=== PATIENT | female | born 1930 | race Caucasian/White ===

== ENCOUNTER → 2016-09-09 | Outpatient (CLI) | payer OTHER ==
[~2016-09-09] MED LIST: ACET-1138 PO; ARTHRITIS OTC PO; ASPEC81 PO; ASPI81TA28 PO; CARV6.25 PO; CHOL1000 PO; CYAN100T6 PO; DRGTP12 TOP; ERGO500037 PO; HYDR-5688 PO; ISOS30TA3 PO; LACT10SO17 PO; LISI-461 PO; NTRGSL/4 UT; ONDA4TAB46 PO; RXC5 PO; VITAMIN B12 PO
[2016-09-09 18:00] LABS: ALT/SGPT 12 U/L (12-78); BLOOD UREA NITROGEN 23 mg/dl (7-18); CALCIUM 8.7 mg/dl (8.5-10.1); CARBON DIOXIDE 25 mmol/L (21-32); CHLORIDE 104 mmol/L (98-107); CREATININE 0.75 mg/dl (0.60-1.20); GLUCOSE 114 mg/dl (70-99); POTASSIUM 4.2 mmol/L (3.5-5.1); SODIUM 138 mmol/L (136-145)
[2016-09-10 07:14] LABS: ESTIMATED AVERAGE GLUCOSE 137 mg/dl; HA1C FLAG Normal (Normal)
== END | disposition home or self-care (01) ==
LOC: C.LABMFLN 08:06
PROVIDERS: ATTEND Family Medicine
DX: I25.10 Atherosclerotic heart disease of native coronary artery without angina pectoris (principal); E53.8 Deficiency of other specified B group vitamins; E55.9 Vitamin D deficiency, unspecified; R73.01 Impaired fasting glucose

== ENCOUNTER 2016-11-26 08:34 | Inpatient (IN) | payer OTHER ==
[2016-11-11 13:34] VITALS: BMI 22.0
--- NOTE | 2016-11-11 14:11 | PAT Medication Instructions ---
Service Date Nov 11, 2016. Current Home Medication List Aspirin (Aspirin Ec), 81 MG PO QPM Carvedilol (Coreg), 6.25 MG PO BID Cholecalciferol (Vitamin D3), 1 TAB PO QAM Cyanocobalamin (Vitamin B12 100 Mcg), 250 MCG PO QAM Ergocalciferol (Vitamin D 64342 Unit), 50,000 UNIT PO [id number] Fentanyl (Fentanyl), 1 DOSE TOP Q3DAYS Isosorbide Mononitrate Ext Rel (Imdur Ext Rel), 30 MG PO QAM Lactulose (Chronulac), 1 DOSE PO BID Lisinopril (Zestril), 10 MG PO QAM Nitroglycerin (Nitrostat), 0.4 MG UT PRN Ondansetron Hcl (Zofran), 4 MG PO PRN PRN for Nausea [Arthritis Otc], 2 TAB PO BID Medication Instructions For Your Scheduled Surgery Ergocalciferol (Vitamin D 92685 Unit), 50,000 UNIT PO [id number] (okay to continue as directed) [Arthritis Otc], 2 TAB PO BID (check with surgeon for instructions) - Hold the following medications 24 hours prior to surgery: Fentanyl (Fentanyl), 1 DOSE TOP Q3DAYS ( avoid placing on surgical site) - Hold the following medications the morning of surgery: Lisinopril (Zestril), 10 MG PO QAM Lactulose (Chronulac), 1 DOSE PO BID Cholecalciferol (Vitamin D3), 1 TAB PO QAM Cyanocobalamin (Vitamin B12 100 Mcg), 250 MCG PO QAM - Take the following medications the morning of surgery with a sip of water: Ondansetron Hcl (Zofran), 4 MG PO PRN PRN for Nausea Nitroglycerin (Nitrostat), 0.4 MG UT PRN Isosorbide Mononitrate Ext Rel (Imdur Ext Rel), 30 MG PO QAM Carvedilol (Coreg), 6.25 MG PO BID - Take the following medications as scheduled the night before surgery: Ondansetron Hcl (Zofran), 4 MG PO PRN PRN for Nausea Nitroglycerin (Nitrostat), 0.4 MG UT PRN Lactulose (Chronulac), 1 DOSE PO BID Carvedilol (Coreg), 6.25 MG PO BID Aspirin (Aspirin Ec), 81 MG PO QPM (okay to continue per surgeon) If you have any questions please call us at [phone] (Charlene Vásquez PA-C) or [phone] or [phone]
[2016-11-11 15:06] LABS: INR 1.1 (0.9-1.1); PARTIAL THROMBOPLASTIN RATIO 1.1; PROTHROMBIN TIME (PATIENT) 11.4 SECONDS (9.0-12.0)
[2016-11-11 15:24] LABS: URINE APPEARANCE CLOUDY (CLEAR); URINE BILIRUBIN NEG (NEG); URINE COLOR YELLOW; URINE EPITHELIAL CELL AUTO >30 /lpf (0-5); URINE NITRITE NEG (NEG); URINE SPECIFIC GRAVITY 1.017 (1.000-1.030); UROBILINOGEN NEG (NEG)
[2016-11-11 15:27] LABS: MANUAL MICROSCOPIC REQUIRED? NO; REVIEW REQ? NO
[2016-11-12 07:04] LABS: ESTIMATED AVERAGE GLUCOSE 137 mg/dl; HA1C FLAG Normal (Normal)
--- NOTE | 2016-11-18 12:17 | HISTORY & PHYSICAL EXAMINATION ---
DATE OF ADMISSION: 11/19/2016 CHIEF COMPLAINT: Left hip pain. 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 X-rays and CT scan reveal severe osteoarthritis with complete loss of joint space. The entire hip joint is surrounded by large amounts of osteophytes and heterotopic bone. Due to her ongoing pain and severe disability, she is now scheduled for left total hip arthroplasty. PAST MEDICAL HISTORY: Coronary artery disease, moderate ischemic cardiomyopathy, hypertension. PAST SURGICAL HISTORY: Unknown. MEDICATIONS: Include fentanyl patch 25 mcg q. 72 hours, mirtazapine 15 mg at bedtime, carvedilol 6.25 mg 1 tablet twice daily, isosorbide mononitrate ER 30 mg daily, lisinopril 5 mg daily, lactulose solution 2 tablespoons p.o. b.i.d., vitamin B12 500 mcg daily, Ecotrin 81 mg daily, Nitrostat 0.4 mg sublingual p.r.n. chest pain, tramadol 50 mg q. 6 hours p.r.n. pain, vitamin B12 250 mcg daily, vitamin D 50,000 units every 5 weeks. ALLERGIES: No known drug allergies. SOCIAL HISTORY AND REVIEW OF SYSTEMS: Noncontributory. PHYSICAL EXAMINATION: GENERAL: Well-nourished, well-developed elderly female who is restricted to her wheelchair due to pain in her left hip. HEENT: Normocephalic, atraumatic, extraocular movements intact, oropharynx pink and moist. NECK: Supple without adenopathy. LUNGS: Clear to auscultation bilaterally. HEART: Regular rate and rhythm. ABDOMEN: Soft, nontender, nondistended. EXTREMITIES: The upper extremities are within normal limits. The left hip demonstrates virtually no range of motion. It is painful with any attempted motion. X-rays and CT scan were reviewed. She has severe osteoarthritis with complete loss of the joint space. There is large amount of accessory bone and osteophytes about the hip joint. ASSESSMENT: Left hip degenerative joint disease. PLAN: Risks versus benefits were discussed. Consent was obtained. The patient's primary care physician is Dr. Clifford Brock from [facility]. Her cardiology is [facility] cardiology in [place]. We will proceed with left total hip arthroplasty upon preoperative workup and medical clearance.
[2016-11-18 14:57] VITALS: BMI 22.0
--- NOTE | 2016-11-25 11:58 | HISTORY & PHYSICAL EXAMINATION ---
DATE OF ADMISSION: 11/26/2016 CHIEF COMPLAINT: Left hip pain. HISTORY OF PRESENT ILLNESS: The patient is an 86-year-old female with known severe osteoarthritis about her left hip. Her pain and disability is to the point that she really has limited ambulatory ability and spends a lot of time in a wheelchair. X-rays demonstrate severe left hip DJD with significant osteophyte formation about the joint. She is now scheduled for a left total hip arthroplasty. PAST MEDICAL HISTORY: Coronary artery disease, ischemic cardiomyopathy, hypertension, hyperglycemia. PAST SURGICAL HISTORY: Cardiac catheterization, not a candidate for revascularization procedure. MEDICATIONS: Fentanyl transdermal patch 25 mcg every 72 hours, mirtazapine 15 mg at bedtime, carvedilol 6.25 mg twice daily, isosorbide mononitrate ER 30 mg daily, lisinopril 5 mg daily, lactulose solution 2 tablespoons p.o. b.i.d., vitamin B12 500 mcg daily, Ecotrin 81 mg daily, Nitrostat 0.4 mg sublingual p.r.n. chest pain, tramadol 50 mg q. 6 hours p.r.n. pain, vitamin B12 250 mcg daily, vitamin D 50,000 units every 5 weeks. ALLERGIES: No known drug allergies. SOCIAL HISTORY AND REVIEW OF SYSTEMS: Noncontributory. PHYSICAL EXAMINATION: GENERAL: Well-nourished, well-developed elderly female who is essentially restricted to a wheelchair. HEAD, EYES, EARS, NOSE, AND THROAT: Normocephalic, atraumatic, extraocular movements intact, oropharynx pink and moist. NECK: Supple without adenopathy. LUNGS: Clear to auscultation bilaterally. HEART: Regular rate and rhythm. ABDOMEN: Soft, nontender, nondistended. EXTREMITIES: The upper extremities are within normal limits. The left hip demonstrates significantly limited active or passive range of motion. She has significant pain with any attempted motion. X-RAYS: X-rays were reviewed. She has severe osteoarthritis about the left hip with significant osteophyte and/or heterotopic bone ossification about the entire acetabulum and femoral head. ASSESSMENT: Left hip degenerative joint disease. PLAN: Risks versus benefits were discussed. Consent was obtained. The patient's primary care physician is Dr. Clifford Brock from [facility]. Her batch maker is Dr. Dennis Solis from [facility]. Will proceed with left total hip arthroplasty upon preoperative workup and medical clearance.
[~2016-11-26] VITALS: Ht 167.6 cm; Wt 62.1 kg
[2016-11-26] VITALS (8 sets, daily range): BP systolic 94–154; BP diastolic 51–65; PULSE 60–72; TEMP 36.3–36.5; O2SAT 97–100; Ht 167.6 cm; Wt 62.1 kg
--- NOTE | 2016-11-26 07:32 | History & Physical Bridge Note ---
H&P Re-Evaluation Bridge Note: I have examined the patient, reviewed the History & Physical and in the interval since the performance of the History & Physical I have noted the following changes of clinical significance: No changes noted
[~2016-11-26 08:34] MED LIST changes: -ACET-1138 PO; +ACETAMINOPHEN 500 MG TAB PO SCH; -ASPEC81 PO; +BUPIVACAINE 0.5 % 5 MG/1 ML PF 10ML VIAL ONE; +CEFAZOLIN 1000MG/55 ML D5W 55 ML IV SCH; +CeleBREX 200 MG CAP PO SCH; +DEXAMETHASONE 4 MG TAB PO SCH; +FAMOTIDINE 20 MG TAB PO SCH; +GABAPENTIN 300 MG CAP PO SCH; -HYDR-5688 PO; +LACTATED RINGER'S 1000ML 1,000 ML IV SCH; +LACTATED RINGER'S 1000ML 500 ML IV ONE; +LACTATED RINGER'S 1000ML IV SCH; +METOCLOPRAMIDE HCL 10 MG TAB PO SCH; +ROPIVACAINE 5MG/ML 30 ML 150 MG, BUPIVACAINE/EPINEPHR 0.5% MPF 30 ML, KETOROLAC TROMETH... INFIL SCH; -RXC5 PO; -VITAMIN B12 PO
[2016-11-26] MEDS ORDERED: FENTANYL CITRATE INJ 50 MCG/1 ML 2 ML VIAL ONE (08:41)
[2016-11-26] MEDS ORDERED: PROPOFOL IV EMULSION 10 MG/ML 20 ML VIAL IV ONE (08:41)
[2016-11-26] MEDS ORDERED: LIDOCAINE HCL 2% 2 ML VIAL (20MG/ML) ONE (08:41)
[2016-11-26] MEDS ORDERED: MIDAZOLAM HCL 1 MG/ML 2ML VIAL ONE (08:42)
[2016-11-26] MEDS ORDERED: ORTHO JOINT ANESTHETIC ONE (09:33)
[2016-11-26] MEDS ORDERED: POVIDONE-IODINE OP SOLN 30 ML BTL ONE (09:34)
[2016-11-26] MEDS ORDERED: BACITRACIN 50000 UNIT VIAL ONE (09:34)
[2016-11-26] MEDS: TRANEXAMIC ACID INJ 1,000 MG in SODIUM CHLORIDE 0.9% 100ML 100 ML IV SCH ×2 (09:40→13:44)
[2016-11-26] MEDS ORDERED: ATROPINE SULFATE 0.1 MG/ML 5ML SYR IV PRN (10:15)
[2016-11-26] MEDS ORDERED: MoRPHine SULFATE 10 MG/ML CARP/VIAL IV PRN (10:15)
[2016-11-26] MEDS ORDERED: ONDANSETRON INJ 2 MG/ML 2 ML VIAL IV PRN ×2 (10:15→12:00)
[2016-11-26] MEDS ORDERED: EpHEDrine SULFATE INJ 50 MG/ML AMP IV PRN (10:15)
[2016-11-26] MEDS ORDERED: MEPERIDINE HCL 25 MG/ML CARP IV PRN (10:15)
[2016-11-26] MEDS ORDERED: FENTANYL CITRATE INJ 50 MCG/1 ML 2 ML VIAL IV PRN (10:15)
[2016-11-26] MEDS ORDERED: PHENYLEPHRINE 100MCG/ML 5ML SYR ONE (10:33)
[2016-11-26] MEDS ORDERED: GLYCOPYRROLATE INJ 0.2 MG/ML VIAL ONE (10:46)
[2016-11-26] MEDS ORDERED: EpHEDrine SULFATE INJ 50 MG/ML AMP ONE (11:02)
--- NOTE | 2016-11-26 11:23 | [facility] Post Operative Brief Note ---
Immediate Operative Summary Operative Date Nov 26, 2016. Pre-Operative Diagnosis Left Hip Degenerative Joint Disease Post-Operative Diagnosis Left Hip Degenerative Joint Disease Procedure(s) Performed Left Total Hip Arthroplasty Surgeon Dr. Ranjeet Liriano Molding Technician Surgeon(s) Sukumar Negro PA-C Estimated Blood Loss 50ML Findings severe oa Specimens A. Left Femoral Head Disposition Recovery Room / PACU
--- NOTE | 2016-11-26 11:36 | OPERATIVE REPORT ---
DATE OF OPERATION: 11/26/2016 PREOPERATIVE DIAGNOSIS: Osteoarthritis left hip. POSTOPERATIVE DIAGNOSIS: Osteoarthritis left hip. PROCEDURE: Left connective total hip arthroplasty. SURGEON: Dr. Liriano. MECHANICAL ESTIMATOR: Sukumar Negro PA-C. ANESTHESIA: General. COMPLICATIONS: None. OPERATION AND FINDINGS: PROCEDURE: Following induction of adequate general anesthesia, the patient was placed in right lateral decubitus position and left Francesca-Langenbeck incision was made. Subcutaneous tissue was sharply dissected. Electrocautery used for hemostasis. The fascia was incised throughout the length of the wound and a arteaga scissor placed beneath the short external rotators. The pyriformis was tagged with #1 Vicryl. The short external rotators were divided from the posterior aspect of the femur using electrocautery. These were swept posteriorly. A T-capsulotomy incision was made and the hip was dislocated using a combination of flexion, adduction, and internal rotation. Exposure of the femoral neck with old-style Hohmann and a blunt Hohmann was carried out and a femoral rasp was utilized as a guide for making the appropriate level femoral neck cut. This bone fragment was removed and reserved on the back table. Next, attention was turned to the acetabulum where bone hook was used to retract the femur while the offset retractors were placed anterior and posteriorly. A double-angled Hohmann was placed in superior and anterior position exposing the acetabulum nicely. Acetabular labrum as well as posterior capsule elements were removed using a long knife and a long pickup. Fovea centralis was cleared of all soft tissue. Sequential reamings were carried up to a size 56 and decision was made to proceed with impaction of a size 56 trabecular metal cup. This was impacted and held using a single 35 mm bone screw. The acetabular liner was placed with 15 of elevated posterior wall in the superior and posterior position. Next, attention was turned to the femoral portion of the case where a Bovie and pickup was used to further clear short external rotators from their insertion on the femur. Box osteotome was used to gain access to the femoral canal and the T-handled rasp and a rattail rasp were used to further open and lateral the canal. Sequentially raspings were carried up to a size 5 which gave good fit and fill of the proximal femur. A trial reduction was carried out and dual mobility femoral head 28 mm +0 ceramic offset femoral neck component was chosen as the size to be used. A dual mobility femoral head was impacted into position, +0 head was utilized. The trial reduction was stable in all degrees of rotation with no [id number] impingement. The hip was dislocated. The trial components were removed and the final femoral stem, neck, and femoral head combination were assembled on the back table and impacted into position. Hip was relocated. Range of motion checked once again successful and the wound was irrigated. The pyriformis repaired to the greater trochanter using #1 Vicryl [id number] suture. A Hemovac drain was placed and the fascia was closed using #1 Vicryl, subcutaneous tissue was closed using 0 Dexon, and skin was closed with phong. Sterile dressing of Adaptic, 4 x 4's, ABDs, and foam tape was applied. The patient tolerated the procedure well. Recovery room stable. Due to the complex nature of the procedure, the entire surgery was performed with the operational assistance of Sukumar Negro PA-C. The assistant purchasing manager, under direct supervision, was involved in the actual performance of all aspects of the surgical procedure including hemostasis, tissue retraction and incision, instrument management, patient positioning, and wound closure. I attest to the content of the Intraoperative Record and any orders documented therein. Any exceptio ns are noted below.
[2016-11-26] MEDS ORDERED: ALUMINUM/MAGNESIUM/SIMETH (MAALOX MAX) 30 ML UDC PO PRN (12:00)
[2016-11-26] MEDS ORDERED: MAGNESIUM HYDROXIDE SUSP 30 ML UDC PO PRN (12:00)
[2016-11-26] MEDS ORDERED: METOCLOPRAMIDE HCL INJ 5 MG/ML 2 ML VIAL IV PRN (12:00)
[2016-11-26] MEDS ORDERED: NITROGLYCERIN 0.4 MG SL PER TAB CHARGE UT PRN (12:00)
[2016-11-26] MEDS ORDERED: ZOLPIDEM TARTRATE 5 MG TAB PO PRN (12:00)
[2016-11-26] MEDS ORDERED: MoRPHine SULFATE 2 MG/ML CARP IV PRN (12:00)
--- NOTE | 2016-11-26 12:53 | DIAGNOSTIC IMAGING REPORT ---
AP PELVIS, CROSSTABLE LATERAL LEFT HIP History: Left total hip arthroplasty. Degenerative arthritis. Postop. FINDINGS: The patient is status post a left total hip arthroplasty. The hardware is intact. No fracture or dislocation. Skin phong and surgical drains are in place. IMPRESSION: Left total hip arthroplasty. No evidence for hardware complication. Electronically signed by: Manjit Adamson M.D. 11/26/2016 12:51 PM Dictated Date/Time: 11/26/2016 12:46 PM
--- NOTE | 2016-11-26 13:46 | Medical Consult ---
History General Date of Service: Nov 26, 2016. Stated Complaint: Left Hip Osteoarthritis HPI The patient is a 86 year old female who presents to [facility] with complaints of Left Hip Osteoarthritis. The patient's primary care provider is Clifford Brock M.D.. This pt with non operative CAD and ischemic cardiomyopahty underwent left FELICIANO, reportedly was not having any chest pain or shortness of breath pre procedure, currently is resting well Historian: patient, other (chart) Review of Systems Constitutional: reports: malaise, weakness Cardiovascular: denies: chest pain, chest pressure Respiratory: denies: cough, shortness of breath Gastrointestinal: denies: abdominal pain, constipation, diarrhea Genitourinary - Female: denies: hematuria, hesitancy Musculoskeletal: reports: arthralgias, joint pain Integumentary: denies: rash, redness Psychiatric: denies: anxiety, depression Past Medical History Past Medical History: coronary artery disease (ischemic cardiomyopathy), hypertension, other (glucose intolerance) Family History Other: Diabetes, Heart Disease, Hypertension Social History Hx Tobacco Use In Past Year?: No Smoking Status: Never Smoker Allergies Coded Allergies: Propranolol (Verified Allergy, Unknown, LISTED ON PCP RECORD-UNKNOWN, ) Tramadol (Verified Adverse Reaction, Unknown, CONSTIPATION, 11/26/16) Current Medications Reported Home Medications Medications Dose Route/Sig Max Daily Dose Days Date Category Vitamin B12 100 Mcg (Cyanocobalamin) 100 Mcg Tab 250 Mcg PO QAM 11/11/16 Reported Vitamin D 74034 Unit (Ergocalciferol) 50,000 Unit Cap 50,000 Unit PO [id number] 11/11/16 Reported Nitrostat (Nitroglycerin) 0.4 Mg Tab 0.4 Mg UT PRN 11/11/16 Reported Zofran (Ondansetron HCl) 4 Mg Tab 4 Mg PO PRN PRN 11/11/16 Reported Imdur Ext Rel (Isosorbide Mononitrate) 30 Mg Ertab 30 Mg PO QAM 11/11/16 Reported Chronulac (Lactulose) 10 Gm/15 Ml Syrp 1 Dose PO BID 11/11/16 Reported Fentanyl 12 Mcg Tdsy 1 Dose TOP Q3DAYS 11/11/16 Reported [Arthritis Otc] 2 Tab PO BID 11/11/16 Reported Vitamin D3 (Cholecalciferol) 1,000 Unit Tab 1 Tab PO QAM 90 11/11/16 Reported Aspirin Ec (Aspirin) 81 Mg Tab 81 Mg PO QPM 11/11/16 Reported Coreg (Carvedilol) 6.25 Mg Tab 6.25 Mg PO BID 11/11/16 Reported Zestril (Lisinopril) 10 Mg Tab 10 Mg PO QAM 11/11/16 Reported Physical Physical Exam Vital Signs: Date Time Temp Pulse Resp B/P Pulse Ox O2 Delivery O2 Flow Rate FiO2 11/26/16 13:21 63 16 132/52 98 2.0 11/26/16 12:50 100 Nasal Cannula 2.0 11/26/16 12:50 36.4 72 16 94/57 100 Nasal Cannula 2.0 11/26/16 12:32 66 18 11/26/16 12:32 66 18 99 11/26/16 12:30 97/52 11/26/16 12:27 69 16 11/26/16 12:27 68 16 98 11/26/16 12:25 100/54 11/26/16 12:22 69 17 98 11/26/16 12:22 69 17 11/26/16 12:20 108/52 11/26/16 12:17 70 18 99 11/26/16 12:17 70 18 11/26/16 12:15 100/48 11/26/16 12:12 70 18 99 11/26/16 12:12 70 18 11/26/16 12:11 72 17 98 11/26/16 12:11 37 72 17 11/26/16 12:10 111/53 11/26/16 12:06 71 18 11/26/16 12:06 72 18 99 11/26/16 12:05 101/55 11/26/16 12:01 71 19 11/26/16 12:01 71 19 99 11/26/16 12:00 105/53 11/26/16 11:56 77 20 100 11/26/16 11:56 74 20 11/26/16 11:55 99/53 11/26/16 11:51 74 20 99 11/26/16 11:51 74 20 11/26/16 11:50 73 19 100/53 99 11/26/16 11:50 73 19 11/26/16 11:49 102/54 11/26/16 11:40 37 74 16 102/54 99 Nasal Cannula 3 11/26/16 08:54 36.5 62 20 127/63 100 Room Air General Appearance: NO APPARENT DISTRESS, thin Eyes: PERRLA, EOMI Neck: SUPPLE, NO THYROMEGALY Respiratory: BREATH SOUNDS NORMAL, CLEAR TO AUSCULTATION, CLEAR TO PERCUSSION Cardiovasular: REGULAR RATE/RHYTHM, NORMAL S1S2 Abdomen: NON TENDER, NORMAL BOWEL SOUNDS, NO REBOUND Upper Extremities: NO EDEMA, NO DEFORMITY Lower Extremities: NO EDEMA, NO DEFORMITY, other (good distal pulses) Psychiatric: NORMAL AFFECT Impression Assessment and Plan 86 F with ischemic cardiomyopathy s/p left total hip Unknown EF will recommend care with ivf, continue coreg and imdur, restarting lisinopril day 2 unless blood pressure requires for glucose intolerance will check bsg and if elevated use ssi continue fentanyl for pain lactulose for constipation orhto has chosen aspirin 81 bid for dvt prevention given her age will stop ambien and lyrica post op meds ordered by ortho
[2016-11-26] MEDS: D5W AND 1/2NSS + 20MEQ KCL 1,000 ML IV SCH ×2 (13:50→23:48)
[2016-11-26] MEDS ORDERED: MoRPHine SULFATE 4 MG/ML 1 ML CARP\\VIAL IV PRN (14:15)
[2016-11-26] MEDS ORDERED: GLUCOSE 10 TABS/TUBE PO PRN (14:30)
[2016-11-26] MEDS ORDERED: GLUCAGON FOR INJ 1 MG VIAL SQ PRN (14:30)
[2016-11-26] MEDS ORDERED: DEXTROSE 50% 50 ML SYR IV PRN (14:30)
[2016-11-26] MEDS ORDERED: GLUCOSE 40% GEL 15 GM TUBE PO PRN (14:30)
--- NOTE | 2016-11-26 14:43 | Anesthesiology Progress Note ---
Anesthesia Post Op Note Date & Time Nov 26, 2016 at 14:42 Vital Signs Pain Intensity: 0.0 Vital Signs Past 12 Hours Date Time Temp Pulse Resp B/P Pulse Ox O2 Delivery O2 Flow Rate FiO2 11/26/16 13:51 68 16 154/57 100 Nasal Cannula 2.0 11/26/16 13:21 63 16 132/52 98 2.0 11/26/16 12:50 100 Nasal Cannula 2.0 11/26/16 12:50 36.4 72 16 94/57 100 Nasal Cannula 2.0 11/26/16 12:32 66 18 11/26/16 12:32 66 18 99 11/26/16 12:30 97/52 11/26/16 12:27 69 16 11/26/16 12:27 68 16 98 11/26/16 12:25 100/54 11/26/16 12:22 69 17 98 11/26/16 12:22 69 17 11/26/16 12:20 108/52 11/26/16 12:17 70 18 99 11/26/16 12:17 70 18 11/26/16 12:15 100/48 11/26/16 12:12 70 18 99 11/26/16 12:12 70 18 11/26/16 12:11 72 17 98 11/26/16 12:11 37 72 17 11/26/16 12:10 111/53 11/26/16 12:06 71 18 11/26/16 12:06 72 18 99 11/26/16 12:05 101/55 11/26/16 12:01 71 19 11/26/16 12:01 71 19 99 11/26/16 12:00 105/53 11/26/16 11:56 77 20 100 11/26/16 11:56 74 20 11/26/16 11:55 99/53 11/26/16 11:51 74 20 99 11/26/16 11:51 74 20 11/26/16 11:50 73 19 100/53 99 11/26/16 11:50 73 19 11/26/16 11:49 102/54 11/26/16 11:40 37 74 16 102/54 99 Nasal Cannula 3 11/26/16 08:54 36.5 62 20 127/63 100 Room Air Notes Mental Status: alert / awake / arousable, participated in evaluation Pt Amnestic to Procedure: Yes Nausea / Vomiting: adequately controlled Pain: adequately controlled Airway Patency, RR, SpO2: stable & adequate BP & HR: stable & adequate Hydration State: stable & adequate Neuraxial Anesthesia: was administered, sensory block is resolving Anesthetic Complications: no major complications apparent
[2016-11-26] MEDS: KETOROLAC TROMETHAMINE 15 MG/ML VIAL IV. SCH ×2 (16:16→21:46)
[2016-11-26] MEDS: INSULIN ASPART 100 UNITS/ML 3 ML PEN SC SCH ×2 (17:50→20:23)
[2016-11-26] MEDS: FERROUS GLUCONATE 324 MG TAB PO SCH (17:51)
[2016-11-26] MEDS: ACETAMINOPHEN 500 MG TAB PO SCH (17:51)
[2016-11-26] MEDS: CEFAZOLIN IV 1,000 MG in DEXTROSE 5% 50ML 50 ML IV SCH (17:53)
[2016-11-26] MEDS: OXYCODONE HCL IR 5 MG TAB (IMMEDIATE RELEASE) PO PRN (20:17)
[2016-11-26] MEDS: DOCUSATE SODIUM 100 MG CAP PO SCH (20:18)
[2016-11-26] MEDS: ASPIRIN 81 MG ECTAB PO SCH (20:19)
[2016-11-26] MEDS: CARVEDILOL 6.25 MG TAB PO SCH (20:19)
[2016-11-26] MEDS ORDERED: PREGABALIN 75 MG CAP PO SCH (21:00)
[2016-11-27] VITALS (7 sets, daily range): BP systolic 107–149; BP diastolic 58–70; PULSE 53–92; TEMP 36.3–36.5; O2SAT 91–98
[2016-11-27] MEDS: CEFAZOLIN IV 1,000 MG in DEXTROSE 5% 50ML 50 ML IV SCH (02:30)
[2016-11-27] MEDS: ACETAMINOPHEN 500 MG TAB PO SCH ×3 (02:30→17:50)
[2016-11-27] MEDS: KETOROLAC TROMETHAMINE 15 MG/ML VIAL IV. SCH ×2 (04:27→09:52)
[2016-11-27 05:44] LABS: BASO % 0.1 %; BASO ABS # 0.01 K/uL (0-0.2); COMPLETE YES; HEMATOCRIT 32.3 % (37-47); IG% 0.3 %; LYMPH % 4.9 %; LYMPH ABS # 0.57 K/uL (1.2-3.4); MEAN CELL VOLUME 85.9 fL (80-100); MEAN CORPUSCULAR HEMOGLOBIN 29.8 pg (25-34); MEAN CORPUSCULAR HGB CONC 34.7 g/dl (32-36); MEAN PLATELET VOLUME 10.5 fL (7.4-10.4); MONO % 9.1 %; NEUT % 85.6 %; PLATELET COUNT 212 K/uL (130-400); RED BLOOD COUNT 3.76 M/uL (4.2-5.4); WHITE BLOOD COUNT 11.52 K/uL (4.8-10.8)
[2016-11-27 06:16] LABS: BUN/CREATININE RATIO 19.5 (10-20); CALCIUM 8.3 mg/dl (8.5-10.1); CREATININE 0.9 mg/dl (0.60-1.20); POTASSIUM 4.6 mmol/L (3.5-5.1)
[2016-11-27] MEDS: ISOSORBIDE MONONITRATE 30 MG TABCR PO SCH (07:24)
[2016-11-27] MEDS: FERROUS GLUCONATE 324 MG TAB PO SCH ×3 (07:24→17:50)
[2016-11-27] MEDS: PANTOprazole SOD 40 MG TAB PO SCH (07:24)
[2016-11-27] MEDS: DOCUSATE SODIUM 100 MG CAP PO SCH ×2 (07:24→20:16)
[2016-11-27] MEDS: ASPIRIN 81 MG ECTAB PO SCH ×2 (07:24→20:17)
[2016-11-27] MEDS: CYANOCOBALAMIN 500 MCG TAB (VIT B-12) PO SCH (07:25)
[2016-11-27] MEDS: MULTIVITAMIN TAB PO SCH (07:25)
[2016-11-27] MEDS: CARVEDILOL 6.25 MG TAB PO SCH ×2 (07:26→20:17)
[2016-11-27] MEDS ORDERED: DEXAMETHASONE INJ 10 MG in SYRINGE 0 ML IV SCH (07:30)
--- NOTE | 2016-11-27 07:51 | Orthopedic Progress Note ---
Orthopedic Progress Note Date of Service Nov 27, 2016. Subjective Post OP Day: 1 Reports: feeling well Objective N/V intact, dressing C/D/I (Hemovac d/c'd), toes mobile Date Time Temp Pulse Resp B/P Pulse Ox O2 Delivery O2 Flow Rate FiO2 11/27/16 07:36 94 Room Air 11/27/16 07:00 36.3 64 16 149/64 95 Room Air 11/27/16 05:18 96 Room Air 11/27/16 04:00 36.5 53 16 148/59 98 Nasal Cannula 2.0 11/26/16 23:45 Nasal Cannula 2.0 11/26/16 23:00 36.3 66 16 104/51 97 Nasal Cannula 2.0 11/26/16 20:25 36.5 60 14 120/65 97 Nasal Cannula 3.0 11/26/16 16:45 Nasal Cannula 2.0 11/26/16 15:50 36.5 67 14 109/57 99 Nasal Cannula 2.0 11/26/16 14:52 69 16 130/64 100 Nasal Cannula 2.0 11/26/16 13:51 68 16 154/57 100 Nasal Cannula 2.0 11/26/16 13:21 63 16 132/52 98 2.0 11/26/16 12:50 100 Nasal Cannula 2.0 11/26/16 12:50 36.4 72 16 94/57 100 Nasal Cannula 2.0 11/26/16 12:32 66 18 11/26/16 12:32 66 18 99 11/26/16 12:30 97/52 11/26/16 12:27 69 16 11/26/16 12:27 68 16 98 11/26/16 12:25 100/54 11/26/16 12:22 69 17 98 11/26/16 12:22 69 17 11/26/16 12:20 108/52 11/26/16 12:17 70 18 99 11/26/16 12:17 70 18 11/26/16 12:15 100/48 11/26/16 12:12 70 18 99 11/26/16 12:12 70 18 11/26/16 12:11 72 17 98 11/26/16 12:11 37 72 17 11/26/16 12:10 111/53 11/26/16 12:06 71 18 11/26/16 12:06 72 18 99 11/26/16 12:05 101/55 11/26/16 12:01 71 19 11/26/16 12:01 71 19 99 11/26/16 12:00 105/53 11/26/16 11:56 77 20 100 11/26/16 11:56 74 20 11/26/16 11:55 99/53 11/26/16 11:51 74 20 99 11/26/16 11:51 74 20 11/26/16 11:50 73 19 100/53 99 11/26/16 11:50 73 19 11/26/16 11:49 102/54 11/26/16 11:40 37 74 16 102/54 99 Nasal Cannula 3 11/26/16 08:54 36.5 62 20 127/63 100 Room Air Laboratory Results 24 Hours: Test 11/27/16 05:26 White Blood Count 11.52 K/uL Red Blood Count 3.76 M/uL Hemoglobin 11.2 g/dL Hematocrit 32.3 % Mean Corpuscular Volume 85.9 fL Mean Corpuscular Hemoglobin 29.8 pg Mean Corpuscular Hemoglobin Concent 34.7 g/dl Platelet Count 212 K/uL Mean Platelet Volume 10.5 fL Neutrophils (%) (Auto) 85.6 % Lymphocytes (%) (Auto) 4.9 % Monocytes (%) (Auto) 9.1 % Eosinophils (%) (Auto) 0.0 % Basophils (%) (Auto) 0.1 % Neutrophils # (Auto) 9.86 K/uL Lymphocytes # (Auto) 0.57 K/uL Monocytes # (Auto) 1.05 K/uL Eosinophils # (Auto) 0.00 K/uL Basophils # (Auto) 0.01 K/uL Assessment & Plan Assessment: 86 yo female stable POD #1 s/p left FELICIANO Plan: 1. Med management 2. DVT prophylaxis- ASA, TEDs, SCDs 3. PT/OT 4. D/C planning- pt interested in rehab/SNF
--- NOTE | 2016-11-27 08:24 | Anesthesiology Progress Note ---
Anesthesia Post Op Note Date & Time Nov 27, 2016 at 08:23 Vital Signs Pain Intensity: 2.0 Vital Signs Past 12 Hours Date Time Temp Pulse Resp B/P Pulse Ox O2 Delivery O2 Flow Rate FiO2 11/27/16 07:36 94 Room Air 11/27/16 07:00 36.3 64 16 149/64 95 Room Air 11/27/16 05:18 96 Room Air 11/27/16 04:00 36.5 53 16 148/59 98 Nasal Cannula 2.0 11/26/16 23:45 Nasal Cannula 2.0 11/26/16 23:00 36.3 66 16 104/51 97 Nasal Cannula 2.0 11/26/16 20:25 36.5 60 14 120/65 97 Nasal Cannula 3.0 Notes Mental Status: alert / awake / arousable, participated in evaluation Pt Amnestic to Procedure: Yes Nausea / Vomiting: adequately controlled Pain: adequately controlled Airway Patency, RR, SpO2: stable & adequate BP & HR: stable & adequate Hydration State: stable & adequate Neuraxial Anesthesia: sensory block resolved Anesthetic Complications: no major complications apparent
[2016-11-27] MEDS: INSULIN ASPART 100 UNITS/ML 3 ML PEN SC SCH ×4 (08:35→21:00)
[2016-11-27] MEDS ORDERED: LISINOPRIL 10 MG TAB PO SCH (09:00)
--- NOTE | 2016-11-27 12:09 | Progress Note ---
Subjective Date of Service: Nov 27, 2016. Subjective Pt evaluation today including: conversation w/ patient, physical exam, chart review Review of Systems Respiratory: No cough, No dyspnea at rest, No dyspnea on exertion, No hemoptysis, No problem reported, No see HPI, No shortness of breath, No sputum, No wheezing Cardiac: No PND, No chest pain, No claudication, No edema, No orthopnea, No palpitations, No problem reported, No see HPI Neurologic: No balance problems, No memory loss, No numbness/tingling, No paralysis, No problem reported, No see HPI, No vertigo, No weakness Medications Medications (Trade) Dose Ordered Sig/Rajinder Route Start Time Stop Time Status Last Admin Dose Admin Potassium Chloride/Dextrose/ Sod Cl (D5W And 1/2nss + 20meq KCl) 1,000 ml @ 100 mls/hr Q10H IV 11/26/16 13:30 11/27/16 07:52 DC 11/26/16 23:48 100 MLS/HR Ketorolac Tromethamine (Toradol Inj) 15 mg Q6H IV. 11/26/16 16:00 11/27/16 15:59 11/27/16 04:27 15 MG Acetaminophen (Tylenol Tab) 1,000 mg Q8H PO 11/26/16 18:00 12/26/16 17:59 11/27/16 02:30 1,000 MG Docusate Sodium (coLACE CAP) 100 mg BID PO 11/26/16 21:00 12/26/16 20:59 11/27/16 07:24 100 MG Multivitamins (Multivitamin Tab) 1 tab QAM PO 11/27/16 09:00 12/27/16 08:59 11/27/16 07:25 1 TAB Ferrous Gluconate (Ferrous Gluconate Tab) 324 mg TIDM PO 11/26/16 17:45 12/26/16 17:44 11/27/16 07:24 324 MG Pantoprazole Sodium 40 mg 40 mg QAM PO 11/27/16 09:00 12/27/16 08:59 11/27/16 07:24 40 MG Cefazolin Sodium 1000 mg/Dextrose 55 ml @ 100 mls/hr Q8H IV 11/26/16 18:00 11/27/16 02:32 DC 11/27/16 02:30 100 MLS/HR Dexamethasone Sodium Phosphate/ Syringe (Decadron Inj/ Syringe) 2.5 ml @ 1 mls/min TODAY@0730 IV 11/27/16 07:30 11/27/16 07:33 DC 11/27/16 07:23 1 MLS/MIN Aspirin (Ecotrin Tab) 81 mg BID PO 11/26/16 21:00 12/26/16 20:59 11/27/16 07:24 81 MG Carvedilol (Coreg Tab) 6.25 mg BID PO 11/26/16 21:00 12/26/16 20:59 11/27/16 07:26 6.25 MG Cyanocobalamin (Vitamin B-12 Tab) 250 mcg QAM PO 11/27/16 09:00 12/27/16 08:59 11/27/16 07:25 250 MCG Isosorbide Mononitrate (Imdur Ext Rel Tab) 30 mg QAM PO 11/27/16 09:00 12/27/16 08:59 11/27/16 07:24 30 MG Lisinopril (Zestril Tab) 10 mg QAM PO 11/27/16 09:00 11/28/16 08:59 11/27/16 07:25 10 MG Insulin Aspart (novoLOG ASPART) SLIDING SCALE PARAMETER ACHS SC 11/26/16 17:15 12/26/16 17:14 11/27/16 08:35 4 UNITS Objective Vital Signs Date Time Temp Pulse Resp B/P Pulse Ox O2 Delivery O2 Flow Rate FiO2 11/27/16 07:36 94 Room Air 11/27/16 07:00 36.3 64 16 149/64 95 Room Air 11/27/16 05:18 96 Room Air 11/27/16 04:00 36.5 53 16 148/59 98 Nasal Cannula 2.0 11/26/16 23:45 Nasal Cannula 2.0 11/26/16 23:00 36.3 66 16 104/51 97 Nasal Cannula 2.0 11/26/16 20:25 36.5 60 14 120/65 97 Nasal Cannula 3.0 11/26/16 16:45 Nasal Cannula 2.0 11/26/16 15:50 36.5 67 14 109/57 99 Nasal Cannula 2.0 11/26/16 14:52 69 16 130/64 100 Nasal Cannula 2.0 11/26/16 13:51 68 16 154/57 100 Nasal Cannula 2.0 11/26/16 13:21 63 16 132/52 98 2.0 11/26/16 12:50 100 Nasal Cannula 2.0 11/26/16 12:50 36.4 72 16 94/57 100 Nasal Cannula 2.0 11/26/16 12:32 66 18 11/26/16 12:32 66 18 99 11/26/16 12:30 97/52 11/26/16 12:27 69 16 11/26/16 12:27 68 16 98 11/26/16 12:25 100/54 11/26/16 12:22 69 17 98 11/26/16 12:22 69 17 11/26/16 12:20 108/52 11/26/16 12:17 70 18 99 11/26/16 12:17 70 18 11/26/16 12:15 100/48 11/26/16 12:12 70 18 99 11/26/16 12:12 70 18 11/26/16 12:11 72 17 98 11/26/16 12:11 37 72 17 11/26/16 12:10 111/53 Physical Exam General Appearance: WD/WN, no apparent distress Eyes: normal inspection, PERRL ENT: normal ENT inspection, hearing grossly normal Neck: supple, no adenopathy Respiratory/Chest: chest non-tender, lungs clear Cardiovascular: regular rate, rhythm, no gallop, no murmur Abdomen: normal bowel sounds, soft Extremities: normal range of motion Neurologic/Psychiatric: machine operator packaging II-XII nml as tested Laboratory Results Last 24 Hours Test 11/26/16 17:26 11/26/16 20:19 11/27/16 05:26 11/27/16 08:06 Bedside Glucose 229 mg/dl 277 mg/dl 246 mg/dl White Blood Count 11.52 K/uL Red Blood Count 3.76 M/uL Hemoglobin 11.2 g/dL Hematocrit 32.3 % Mean Corpuscular Volume 85.9 fL Mean Corpuscular Hemoglobin 29.8 pg Mean Corpuscular Hemoglobin Concent 34.7 g/dl Platelet Count 212 K/uL Mean Platelet Volume 10.5 fL Neutrophils (%) (Auto) 85.6 % Lymphocytes (%) (Auto) 4.9 % Monocytes (%) (Auto) 9.1 % Eosinophils (%) (Auto) 0.0 % Basophils (%) (Auto) 0.1 % Neutrophils # (Auto) 9.86 K/uL Lymphocytes # (Auto) 0.57 K/uL Monocytes # (Auto) 1.05 K/uL Eosinophils # (Auto) 0.00 K/uL Basophils # (Auto) 0.01 K/uL RDW Standard Deviation 43.4 fL RDW Coefficient of Variation 13.6 % Immature Granulocyte % (Auto) 0.3 % Immature Granulocyte # (Auto) 0.03 K/uL Sodium Level 138 mmol/L Potassium Level 4.6 mmol/L Chloride Level 106 mmol/L Carbon Dioxide Level 23 mmol/L Anion Gap 9.0 mmol/L Blood Urea Nitrogen 18 mg/dl Creatinine 0.90 mg/dl Est Creatinine Clear Calc Drug Dose 41.2 ml/min Estimated GFR () 66.6 Estimated GFR (Non- 57.5 BUN/Creatinine Ratio 19.5 Random Glucose 224 mg/dl Calcium Level 8.3 mg/dl Assessment and Plan hx of Ischemic CMP Doing well post op No cardio resp symptoms. Vitals stable. Continue with current cardiac medications. Pt on ASA, Coreg, Lisinopril, Imdur.
[2016-11-28] VITALS (8 sets, daily range): BP systolic 98–168; BP diastolic 53–64; PULSE 68–77; TEMP 36.3–36.6; O2SAT 92–98
[2016-11-28] MEDS: ACETAMINOPHEN 500 MG TAB PO SCH ×3 (01:18→18:00)
--- NOTE | 2016-11-28 06:44 | Orthopedic Progress Note ---
Orthopedic Progress Note Date of Service Nov 28, 2016. Subjective Post OP Day: 2 Reports: feeling well, pain controlled w PO medications, Denies: SOB, calf pain , chest pain, complaints, light headedness, nausea / vomiting Objective calves soft nontender, N/V intact, hip located, capillary refill less than 2 sec., dressing C/D/I, A&O x3, toes mobile Date Time Temp Pulse Resp B/P Pulse Ox O2 Delivery O2 Flow Rate FiO2 11/28/16 00:00 36.4 70 14 152/59 96 Room Air 11/27/16 20:15 80 124/63 11/27/16 20:05 Room Air 11/27/16 15:15 36.5 92 16 107/58 91 Room Air 11/27/16 12:39 76 97 11/27/16 07:36 94 Room Air 11/27/16 07:00 36.3 64 16 149/64 95 Room Air Assessment & Plan Assessment: 86 yo female stable POD #2 s/p left FELICIANO Plan: 1. Med management 2. DVT prophylaxis- ASA, TEDs, SCDs 3. PT/OT 4. D/C planning- pt accepted to [facility] for wednesday Discharge Planning DVT Prophylaxis: TEDs, SCDs, ASA Therapy: Physical Therapy
--- NOTE | 2016-11-28 06:48 | Discharge Instructions ---
Discharge Instructions Date of Service Nov 28, 2016. Admission Reason for Admission: Left Hip Osteoarthritis Discharge Discharge Diagnosis / Problem: left hip arthritis s/p total hip replacement Discharge Goals Goal(s): Decrease discomfort, Improve function, Increase independence Activity Recommendations Activity Level: Up Ad Delilah Therapies: Physical Therapy, Weight Bearing Status (WBAT with walker) Weightbearing Status: Left weightbearing (as tolerated) . Additional Information Patient informed of condition: Yes Advance Directives: No DNR: No Level of Care: Skilled Communicable Disease: No Prognosis: Stable Instructions / Follow-Up Instructions / Follow-Up ACTIVITY RECOMMENDATIONS: SELF CARE INSTRUCTIONS AFTER TOTAL HIP REPLACEMENT Until the incision and soft tissues around your hip have healed, there is a possibility that the hip prosthesis could dislocate. A. Observe the following precautions to prevent dislocation: 1. Don't bend your hip greater than 90 degrees. 2. Avoid crossing your legs or ankles while standing or lying. 3. Sit with your feet placed 6 inches apart. 4. When sitting, keep your knees below your hips. Sit on a firm surface, avoid deep, soft chairs and couches. Use an elevated toilet seat in the bathroom. 5. Don't bend over at the waist. Use a long handled shoehorn and a sock aid to help you put on your shoes and socks. A motion picture critic can help you machine operator hop picker objects that are too high or too low to reach. 6. Keep car riding to a minimum for at least one month after surgery. B. Your balance may be shaky for a while. Use crutches or a walker until directed by your doctor. C. Use hand rails when walking on stairs. D. Wear low heeled shoes with non-slip soles. E. Be sure that your floors are free of things that could trip you - throw rugs , electrical cords, small objects. Avoid wet and waxed floors, especially with crutches and canes. F. Try to walk several times a day with rest periods between. G. Continue with all the exercises taught to you in the hospital. Again, make walking a part of your daily routine. SPECIAL CARE INSTRUCTIONS: VERY IMPORTANT TO READ AND REVIEW A. You may still be at risk for phlebitis and blood clots. 1. Wear surgical stockings (FRANCIS hose) for 2 weeks after surgery to improve circulation and reduce swelling. 2. Take Aspirin 81mg twice daily for 4 weeks or as directed by your doctor. This is your blood thinner. 3. High risk patients may be prescribed a stronger blood thinner if necessary. 4. If you are on Coumadin normally, your family doctor/deputy sheriff chief should monitor your blood work. Expect a phone call the day of or the day after bloodwork is drawn to adjust your dosage. B. You must take antibiotics before having dental work, bladder, bowel and other surgery. Your doctor will provide you with a permanent card to carry describing precautions. C. Call [facility] if you have a fever, redness or swelling around the incision, cloudy drainage from incision, or sudden increase in pain in your hip, not relieved by your regular pain medication. D. Please call the office at if you have any concerns or questions about your operation or recovery. * YOU MAY SHOWER, NO TUB BATHS UNTIL CLEARED BY YOUR DOCTOR. * WEAR FRANCIS HOSE 20 HOURS PER DAY FOR 2 WEEKS. * YOU SHOULD USE A WALKER OR CRUTCHES FOR 2-4 WEEKS. THIS WILL HELP PREVENT STRAIN ON YOUR HIP MUSCLE AND ALLOW IT TO HEAL PROPERLY. YOU MAY WEAN TO A CANE TOLERATED. * MOST PATIENTS WILL HAVE HOME NURSING FOR THERAPY. IF YOU DECIDE TO DO OUTPATIENT PHYSICAL THERAPY, PLEASE SCHEDULE THIS 3 TIMES PER WEEK. * YOU MAY HAVE A LARGE, BAND-CHRIST LIKE DRESSING (SILVERON). THIS WILL REMAIN ON YOUR INCISION FOR 7 DAYS, THEN CAN BE REMOVED. IF INCISION IS LEAKING THROUGH DRESSING, PLEASE CALL THE OFFICE . FOLLOW UP VISIT: If appointment is not already scheduled: Please call [facility] to make a follow-up appointment for 2 weeks after your surgery at . Current Hospital Diet Patient's current hospital diet: Diabetes Type 2 Diet Discharge Diet Recommended Diet: Diabetes Type 2 Diet Procedures Procedures Performed: Left Total Hip Arthroplasty Pending Studies Studies pending at discharge: no Laboratory Results Hemoglobin A1c Test 11/11/16 14:20 Range/Units Estimated Average Glucose 137 mg/dl Hemoglobin A1c 6.4 H 4.5-5.6 % Medical Emergencies . Who to Call and When: Medical Emergencies: If at any time you feel your situation is an emergency, please call 911 immediately. . Non-Emergent Contact Non-Emergency issues call your: Primary Care Provider, Surgeon . . "Provider Documentation" section prepared by Fidel Naranjo. Core Measure Problem Core Measures: None [place] Drug Monitoring Program Search Results: patient reviewed within database, no issues identified
[2016-11-28] MEDS ORDERED: ASPEC81 PO (06:50)
[2016-11-28] MEDS ORDERED: RXC5 PO (06:50)
[2016-11-28] MEDS ORDERED: ACET-1138 PO (06:50)
[2016-11-28] MEDS: INSULIN ASPART 100 UNITS/ML 3 ML PEN SC SCH ×4 (08:00→21:00)
[2016-11-28] MEDS: DOCUSATE SODIUM 100 MG CAP PO SCH ×2 (08:50→21:00)
[2016-11-28] MEDS: ASPIRIN 81 MG ECTAB PO SCH ×2 (08:50→21:19)
[2016-11-28] MEDS: FERROUS GLUCONATE 324 MG TAB PO SCH ×3 (08:50→18:00)
[2016-11-28] MEDS: CARVEDILOL 6.25 MG TAB PO SCH ×2 (08:50→21:19)
[2016-11-28] MEDS: PANTOprazole SOD 40 MG TAB PO SCH (08:51)
[2016-11-28] MEDS: MULTIVITAMIN TAB PO SCH (08:51)
[2016-11-28] MEDS: ISOSORBIDE MONONITRATE 30 MG TABCR PO SCH (08:51)
[2016-11-28] MEDS: CYANOCOBALAMIN 500 MCG TAB (VIT B-12) PO SCH (08:51)
[2016-11-28] MEDS: LISINOPRIL 10 MG TAB PO SCH (08:52)
--- NOTE | 2016-11-28 16:42 | Progress Note ---
Subjective Date of Service: Nov 28, 2016. Subjective Pt evaluation today including: conversation w/ patient, physical exam, chart review, lab review, review of studies, review of inpatient medication list Pain: denies any pain symptoms Voiding: no voiding problems, no incontinence Patient is doing very well, postoperative day 2 s/p FELICIANO. Patient is potential discharge tomorrow to skilled rehabilitation. Patient denies chest pain, shortness of breath, dizziness, palpitation or loss of consciousness. Patient denies abdominal pain and urinary symptoms. Patient denies fever, chills, rigors and sweats. Patient pain is well-controlled with current pain medications. Review of Systems All Other Systems: Reviewed and Negative Medications Medications (Trade) Dose Ordered Sig/Rajinder Route Start Time Stop Time Status Last Admin Dose Admin Lisinopril (Zestril Tab) 10 mg QAM PO 11/28/16 09:00 12/28/16 08:59 11/28/16 08:52 10 MG Objective Vital Signs Date Time Temp Pulse Resp B/P Pulse Ox O2 Delivery O2 Flow Rate FiO2 11/28/16 15:24 36.4 72 18 124/58 98 Room Air 11/28/16 14:22 77 96 11/28/16 11:19 36.5 68 18 98/60 96 Room Air 11/28/16 09:44 98 Room Air 11/28/16 09:40 Room Air 11/28/16 07:45 36.3 68 17 168/64 98 Room Air 11/28/16 00:00 36.4 70 14 152/59 96 Room Air 11/27/16 20:15 80 124/63 11/27/16 20:05 Room Air Physical Exam General Appearance: no apparent distress Neck: supple Respiratory/Chest: lungs clear, normal breath sounds, no respiratory distress Cardiovascular: regular rate, rhythm, no murmur Abdomen: normal bowel sounds, non tender, no organomegaly Neurologic/Psychiatric: normal mood/affect, oriented x 3 Laboratory Results Last 24 Hours Test 11/27/16 17:01 11/27/16 21:11 11/28/16 08:14 11/28/16 12:25 Bedside Glucose 164 mg/dl 180 mg/dl 137 mg/dl 235 mg/dl Assessment and Plan Assessment: 86 yo female stable POD #2 s/p left FELICIANO Plan: 1. Patient is medically cleared to go to [facility]. 2. DVT prophylaxis- ASA, TEDs, SCDs 3. PT/OT 4. D/C planning- pt accepted to [facility] for wednesday Continued [facility] stay due to: other (potential transfer to nursing home home tomorrow) Discharge planning: nursing home facility
[2016-11-28] MEDS: OXYCODONE HCL IR 5 MG TAB (IMMEDIATE RELEASE) PO PRN ×2 (18:45→23:50)
[2016-11-29] MEDS: ACETAMINOPHEN 500 MG TAB PO SCH (02:00)
[2016-11-29] MEDS: OXYCODONE HCL IR 5 MG TAB (IMMEDIATE RELEASE) PO PRN ×2 (05:41→05:44)
[2016-11-29] MEDS ORDERED: HYDROCODONE/ACETAMOPHEN 5/325MG TAB PO PRN (06:30)
--- NOTE | 2016-11-29 06:46 | Orthopedic Progress Note ---
Orthopedic Progress Note Date of Service Nov 29, 2016. Subjective Post OP Day: 3 Reports: pain controlled w PO medications, Denies: SOB, calf pain, chest pain, light headedness, nausea / vomiting Additional Notes: patient states she is having increased pain this am, also does not like the way the oxycodone is making her feel, states she can't take Tramadol. Objective calves soft nontender, N/V intact, dressing C/D/I (silverlon intact), toes mobile patient c/o pain when attempting to move her lower leg, ok with ankle pumps, wiggles toes. sensation intact to light touch distally. Date Time Temp Pulse Resp B/P Pulse Ox O2 Delivery O2 Flow Rate FiO2 11/28/16 23:35 Room Air 11/28/16 22:55 36.6 76 14 122/60 92 Room Air 11/28/16 21:20 68 134/57 11/28/16 15:45 Room Air 11/28/16 15:24 36.4 72 18 124/58 98 Room Air 11/28/16 14:22 77 96 11/28/16 11:19 36.5 68 18 98/60 96 Room Air 11/28/16 09:44 98 Room Air 11/28/16 09:40 Room Air 11/28/16 07:45 36.3 68 17 168/64 98 Room Air Assessment & Plan Assessment: 86 yo female stable POD #3 s/p left FELICIANO Plan: 1. Med management 2. DVT prophylaxis- ASA, TEDs, SCDs 3. PT/OT 4. D/C planning- pt has been accepted to [facility] for possible d/c today, would like to check xray of hip this am, will see how she would progress in PT. will also d/c the oxycodone and try norco instead. Discharge Planning DVT Prophylaxis: TEDs, SCDs, ASA Therapy: Physical Therapy
[2016-11-29] MEDS ORDERED: HYDR-5688 PO (06:48)
[2016-11-29 07:00] VITALS: BP 175/67; PULSE 71; TEMP 36.7; O2SAT 93
--- NOTE | 2016-11-29 07:38 | DIAGNOSTIC IMAGING REPORT ---
LEFT PELVIS/UNILATERAL HIP 1 VIEW CLINICAL HISTORY: Left hip pain. COMPARISON: Pelvis and left hip radiographs November 26, 2016. FINDINGS: Alignment of the total left hip arthroplasty is anatomic. There is no periprosthetic fracture or unexpected radiopaque foreign body. Skin phong are present. There is an acetabular screw. There are no unexpected radiopaque foreign body. There is moderate right hip arthritis. Osteopenia is suspected. IMPRESSION: Status post total left hip arthroplasty. Hardware intact with no periprosthetic fracture. Electronically signed by: Lamberto Rai M.D. 11/29/2016 7:36 AM Dictated Date/Time: 11/29/2016 7:35 AM
[2016-11-29] MEDS: INSULIN ASPART 100 UNITS/ML 3 ML PEN SC SCH (08:00)
[2016-11-29] MEDS: FERROUS GLUCONATE 324 MG TAB PO SCH (09:41)
[2016-11-29] MEDS: CARVEDILOL 6.25 MG TAB PO SCH (09:41)
[2016-11-29] MEDS: ASPIRIN 81 MG ECTAB PO SCH (09:41)
[2016-11-29] MEDS: ISOSORBIDE MONONITRATE 30 MG TABCR PO SCH (09:41)
[2016-11-29] MEDS: LISINOPRIL 10 MG TAB PO SCH (09:42)
[2016-11-29] MEDS: CYANOCOBALAMIN 500 MCG TAB (VIT B-12) PO SCH (09:42)
[2016-11-29] MEDS: DOCUSATE SODIUM 100 MG CAP PO SCH (09:42)
[2016-11-29] MEDS: PANTOprazole SOD 40 MG TAB PO SCH (09:42)
[2016-11-29] MEDS: MULTIVITAMIN TAB PO SCH (09:43)
[2016-11-29 10:02] VITALS: BP 187/72; PULSE 85
[2016-11-29 10:19] VITALS: BP 175/67; PULSE 71; TEMP 36.7; O2SAT 93
--- NOTE | 2016-11-29 12:56 | Progress Note ---
Subjective Date of Service: Nov 29, 2016. Subjective Pt evaluation today including: conversation w/ patient, physical exam, chart review, lab review, review of studies, review of inpatient medication list Pain: denies any pain PO Intake: good by mouth intake Voiding: no voiding problems, no incontinence Patient is seen and examined by me. Patient is ready for transfer to skilled facility. Patient denies chest pain, shortness of breath, dizziness, nausea, vomiting and diarrhea. Patient denies fever, chills, rigors and sweats. Patient pain is well controlled. Review of Systems All Other Systems: Reviewed and Negative Objective Vital Signs Date Time Temp Pulse Resp B/P Pulse Ox O2 Delivery O2 Flow Rate FiO2 11/29/16 10:19 36.7 71 16 93 Room Air 11/29/16 10:02 85 11/29/16 07:50 Room Air 11/29/16 07:00 36.7 71 16 175/67 93 Room Air 11/28/16 23:35 Room Air 11/28/16 22:55 36.6 76 14 122/60 92 Room Air 11/28/16 21:20 68 134/57 11/28/16 15:45 Room Air 11/28/16 15:24 36.4 72 18 124/58 98 Room Air 11/28/16 14:22 77 96 Physical Exam General Appearance: WD/WN, no apparent distress Neck: supple Respiratory/Chest: lungs clear, normal breath sounds, no respiratory distress, no accessory muscle use Cardiovascular: regular rate, rhythm, no edema, no murmur Abdomen: normal bowel sounds, non tender, soft Extremities: no pedal edema Neurologic/Psychiatric: pharmacy services director II-XII nml as tested, no motor/sensory deficits, normal mood/affect, oriented x 3 Skin: no rash Laboratory Results Last 24 Hours Test 11/28/16 16:58 11/28/16 20:33 11/29/16 08:15 Bedside Glucose 138 mg/dl 136 mg/dl 131 mg/dl Assessment and Plan Assessment: 86 yo female stable POD #3 s/p left FELICIANO Plan: 1. Patient is medically cleared to go to [facility]. 2. DVT prophylaxis- ASA, TEDs, SCDs 3. PT/OT 4. D/C planning- pt accepted to [facility] for wednesday Continued [facility] stay due to: other (potential transfer to [facility] tomorrow) Discharge planning: [facility]
--- NOTE | 2016-12-09 17:17 | DISCHARGE SUMMARY ---
CHIEF COMPLAINT: Left hip pain. Please see complete history and physical examination. HOSPITAL COURSE: The patient underwent left total hip arthroplasty without complication. She tolerated the procedure well and was discharged to recovery room in stable condition. Her postoperative course was relatively uneventful. Her postoperative pain was reasonably well controlled with a combination of spinal anesthesia, intraoperative joint injection, IV, and oral pain medications. She was started on aspirin for DVT prophylaxis. She also utilized FRANCIS stockings and SCDs for additional prophylaxis. She tolerated postoperative physical therapy reasonably well where she was ambulating and transferring appropriately. She was observing all total hip precautions. She was transferred to [facility] on postoperative day #3. She will continue her physical therapy there. She will continue her aspirin for DVT prophylaxis and follow up in our office in approximately 10-14 days for initial postop evaluation.
== END 2016-11-29 12:00 | DRG 470 ==
LOC: ENRESERVDT → ENRESERVTM → C.ACU 08:34 → C.3E 09:20
PROC: 0SRB01Z Replacement of Left Hip Joint with Metal Synthetic Substitute, Open Approach (ICD-10-PCS; principal; 2016-11-26 10:30)
DX: M16.12 Unilateral primary osteoarthritis, left hip (principal); I25.10 Atherosclerotic heart disease of native coronary artery without angina pectoris; I25.5 Ischemic cardiomyopathy; I10 Essential (primary) hypertension; K59.00 Constipation, unspecified; I25.2 Old myocardial infarction; R20.0 Anesthesia of skin; D64.9 Anemia, unspecified; F41.9 Anxiety disorder, unspecified; G25.0 Essential tremor; G62.9 Polyneuropathy, unspecified; I08.1 Rheumatic disorders of both mitral and tricuspid valves; Z79.82 Long term (current) use of aspirin; Z79.899 Other long term (current) drug therapy; Z79.891 Long term (current) use of opiate analgesic

== ENCOUNTER → 2018-04-04 | Outpatient (CLI) | payer OTHER ==
[~2018-04-04] MED LIST changes: -ACETAMINOPHEN 500 MG TAB PO SCH; +ASPI-320 PO; -ASPI81TA28 PO; -BUPIVACAINE 0.5 % 5 MG/1 ML PF 10ML VIAL ONE; -CEFAZOLIN 1000MG/55 ML D5W 55 ML IV SCH; -CeleBREX 200 MG CAP PO SCH; -DEXAMETHASONE 4 MG TAB PO SCH; -DRGTP12 TOP; -FAMOTIDINE 20 MG TAB PO SCH; -GABAPENTIN 300 MG CAP PO SCH; +HYDR-5688 PO; -LACT10SO17 PO; +LACT10SO3 PO; -LACTATED RINGER'S 1000ML 1,000 ML IV SCH; -LACTATED RINGER'S 1000ML 500 ML IV ONE; -LACTATED RINGER'S 1000ML IV SCH; -METOCLOPRAMIDE HCL 10 MG TAB PO SCH; -ROPIVACAINE 5MG/ML 30 ML 150 MG, BUPIVACAINE/EPINEPHR 0.5% MPF 30 ML, KETOROLAC TROMETH... INFIL SCH
[2018-04-04 18:44] LABS: BLOOD UREA NITROGEN 18 mg/dl (7-18); CALCIUM 8.6 mg/dl (8.5-10.1); CARBON DIOXIDE 26 mmol/L (21-32); CREATININE 0.67 mg/dl (0.60-1.20); GLUCOSE 110 mg/dl (70-99); POTASSIUM 4.3 mmol/L (3.5-5.1); SODIUM 140 mmol/L (136-145)
== END | disposition home or self-care (01) ==
LOC: C.LABMFLN 17:07
PROVIDERS: ATTEND Family Medicine
DX: I50.30 Unspecified diastolic (congestive) heart failure (principal)